=== PATIENT | female | born 1985 | race Caucasian/White ===

== ENCOUNTER 2019-08-24 15:44 | Emergency (ER) | payer MEDICAID, OTHER ==
[2019-08-24 15:52] VITALS: BP 123/74
== END 2019-08-24 16:10 | disposition home or self-care (01) ==
LOC: ER 15:45
DX: Z00.00 Encounter for general adult medical examination without abnormal findings (principal); F15.90 Other stimulant use, unspecified, uncomplicated; Z98.51 Tubal ligation status
CPT/HCPCS: 99281